=== PATIENT | male | born 1975 | race Caucasian/White ===

== ENCOUNTER 2018-10-20 08:41 | Day surgery (SDC) | payer MEDICAID ==
[~2018-10-20] VITALS: Ht 177.8 cm; Wt 88.0 kg
[2018-10-20 09:12] VITALS: Ht 177.8 cm; Wt 88.0 kg
[2018-10-20] MEDS ORDERED: [UNRECOGNIZED DRUG - OTHER] (09:16)
[2018-10-20] MEDS ORDERED: OMEPRAZOLE (09:16)
[2018-10-20 09:33] VITALS: BP 149/87; PULSE 82; RESP 16
[2018-10-20] MEDS ORDERED: FENTAnyl 50 MCG/ML VIAL ONE (10:46)
[2018-10-20] MEDS ORDERED: PROPOFOL 20 ML ONE (10:46)
--- NOTE | 2018-10-20 10:49 | PREAC ---
Date/Time of Note Date/Time of Note DATE: 10/20/18 TIME: 10:48 Anesthesia Eval and Record Evaluation Time Pre-Procedure Interview DATE: 10/20/18 TIME: 10:48 Age 42 Sex male NPO: 8 hrs Preoperative diagnosis abd pain gerd Planned procedure egd Past Medical History Past Medical History: None Surgery & Anesthesia Issues No known issue Meds Anticoagulation: No Beta Damion within 24 hr: No Reason Beta Damion not given: Pt. not on B-Damion Reported Medications [Antacids] No Conflict Check 10/20/18 [Omeprazole] No Conflict Check 10/20/18 Meds reviewed: Yes Allergies Coded Allergies: No Known Allergy (Unverified , 10/20/18) Allergies Reviewed: Yes Labs/Studies Labs Reviewed: Reviewed by anesthesiologist test: N/A Studies: ECG (n/a), CXR (n/a) Pre-procedure Exam Last vitals Vital Signs Date Temp Pulse Resp B/P (MAP) Pulse Ox O2 O2 Flow FiO2 Time Delivery Rate 10/20/18 98.7 82 16 149/87 99 Room Air 09:33 (107) Airway: Adequate mouth opening Mallampati: Mallampati I Teeth: Normal Lung: Normal Heart: Normal ASA Physical Status ASA physical status: 1 Emergency: None Planned Anesthetic General/MAC: MAC Planned Pain Management Parenteral pain med Pre-operative Attestations Prior to commencing anesthesia and surgery, the patient was re-evaluated, there was verification of: *The patient's identity *The results of appropriate recent lab work and preoperative vital signs *The above evaluation not changing prior to induction *Anesthetic plan, risk benefits, alternative and complications discussed with patient/family; questions answered; patient/family understands, accepts and wishes to proceed. JIMBO PEREZ MD October 20, 2018 10:49
[2018-10-20 11:29] VITALS: BP 130/82; PULSE 75; RESP 18
--- NOTE | 2018-10-20 11:41 | PAC ---
Date/Time of Note Date/Time of Note DATE: 10/20/18 TIME: 11:40 Post-Anesthesia Notes Post-Anesthesia Note Last documented vital signs Vital Signs Date Temp Pulse Resp B/P (MAP) Pulse Ox O2 O2 Flow FiO2 Time Delivery Rate 10/20/18 98.7 75 18 130/82 94 Room Air 11:29 (98) 10/20/18 98.7 09:33 Activity: WNL Respiratory function: WNL Cardiovascular function: WNL Mental status: Baseline Pain reasonably controlled: Yes Hydration appropriate: Yes Nausea/Vomiting absent: No JIMBO PEREZ MD October 20, 2018 11:41
--- NOTE | 2018-10-20 20:15 | CONS ---
DATE OF ADMISSION: 10/20/2018 DATE OF CONSULTATION: PATIENT NAME: FAROOQ CARRERA TYPE OF CONSULTATION: Preoperative gastroenterology. Dear Dr. Vilchis: I thank you very much for this kind referral. HISTORY OF PRESENT ILLNESS: Mr. Farooq Evans is a 42-year-old male patient who has been re ferred to me for further evaluation of upper abdominal pain and chronic heartburn not responding to t herapy with omeprazole and antacids. The patient had abdominal ultrasound done and it was normal. N o past history of peptic ulcer disease. Not on nonsteroidal anti-inflammatory agents. Appetite is g ood. No weight loss. No change in the bowel habit or rectal bleeding. No history of gallstones or liver disease. Not a hypertensive or diabetic. No heart disease, lung problem or kidney disease. SOCIAL HISTORY: Nonsmoker. No alcohol abuse. FAMILY HISTORY: No family history of gastrointestinal tract neoplasm. ALLERGIES: NO DRUG ALLERGIES. MEDICATIONS: 1. Omeprazole 20 mg p.o. q.a.m. 2. Antacids. PHYSICAL EXAMINATION: VITAL SIGNS: He is 5 feet, 10 inches tall and weighs 193 pounds. HEART: Normal heart sounds. LUNGS: Clear. ABDOMEN: Soft. No masses. Normal bowel sounds. NEUROLOGIC: Normal. IMPRESSION: 1. Upper abdominal pain and chronic heartburn, not responding to therapy with omeprazole and antacid s. 2. The patient had abdominal ultrasound and it is negative. PLAN: 1. Endoscopic examination for further evaluation. 2. Because of the obesity with a short thick neck, he needs monitored anesthesia care. The procedure and possible complications are well explained to the patient. He understands and conse nts to the procedure. I thank you once again. With warmest personal regards, Dictated By: JAKE BECERRA/JUNIOR Conf#: [id number] DID#: [id number]
== END 2018-10-20 11:37 | disposition home or self-care (01) ==
LOC: GIL 08:41
PROVIDERS: ATTEND Internal Medicine Gastroenterology
DX: K21.9 Gastro-esophageal reflux disease without esophagitis (principal); R10.10 Upper abdominal pain, unspecified; R12 Heartburn; K29.60 Other gastritis without bleeding; E66.9 Obesity, unspecified; Z68.27 Body mass index [BMI] 27.0-27.9, adult
CPT/HCPCS: 43239; 88305; 88312; J3010; Z7610